=== PATIENT | female | born 2000 | race Caucasian/White ===

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

== ENCOUNTER 2021-06-18 15:38 | Observation (INO) ==
[2021-06-18] MEDS ORDERED: NS 1,000 ML IV 1,000 ML IV ONE (15:40)
[2021-06-18] MEDS ORDERED: ZOFRAN INJ 4 MG VIAL IVP PRN (15:41)
[2021-06-18 17:55] VITALS: BMI 21.7
[2021-06-18] MEDS: CIPRO IV 400 MG PREMIX* 400 MG/200 ML IV.SOLN. IV SCH (21:00)
[2021-06-18] MEDS: TYLENOL 325 MG TAB PO PRN (21:00)
[2021-06-18] MEDS ORDERED: KLOR-CON PO PRN (22:02)
[2021-06-18] MEDS ORDERED: POTASSIUM CHL 60 MEQ/NS 0.45% 500 ML IV PRN (22:02)
[2021-06-18] MEDS ORDERED: POTASSIUM CHLORIDE LIQ 20 MEQ UDC PO PRN (22:02)
[2021-06-18] MEDS ORDERED: POTASSIUM CHL 40 MEQ/NS 0.45% 500 ML IV PRN (22:02)
[2021-06-18] MEDS ORDERED: MICRO K EXTEN CAP 10 MEQ PO PRN (22:02)
[2021-06-18] MEDS ORDERED: K-RIDER 10 MEQ/NS 100 ML 10 MEQ/100 ML BAG IV PRN (22:02)
[2021-06-19] MEDS: NS 1,000 ML IV 1,000 ML IV SCH ×4 (04:50→23:06)
[2021-06-19 05:54] LABS: BASOPHILS % (AUTO) 0.4 % (0.2-1.0); EOSINOPHILS # (AUTO) 0.1 x10^3/uL (0.0-0.2); EOSINOPHILS % (AUTO) 1.5 % (0.9-2.9); HEMATOCRIT 33.9 % (36.0-47.0); HEMOGLOBIN 11.6 g/dL (12.0-16.0); LYMPHOCYTES # (AUTO) 1.8 X10^3/uL (1.3-2.9); LYMPHOCYTES % (AUTO) 22.7 % (21.0-51.0); MEAN CORPUSCULAR HEMOGLOBIN 28.4 pg (27.0-34.0); MEAN CORPUSCULAR HGB CONC 34.2 g/dL (33.0-35.0); MEAN CORPUSCULAR VOLUME 83.1 fL (80.0-100.0); MEAN PLATELET VOLUME 7.9 fL (7.4-11.0); MONOCYTES % (AUTO) 13.4 % (0.0-13.0); NEUTROPHILS # (AUTO) 4.8 x10^3/uL (2.2-4.8); RED BLOOD COUNT 4.07 X10^6/uL (3.5-5.4); WHITE BLOOD COUNT 7.7 X10^3/uL (3.6-10.0)
[2021-06-19 06:08] LABS: ALANINE AMINOTRANSFERASE 9 Units/L (12-78); ALBUMIN 2.3 g/dL (3.4-5.0); ALKALINE PHOSPHATASE 109 Units/L (46-116); ASPARTATE AMINO TRANSFERASE 10 Units/L (15-37); BLOOD UREA NITROGEN 3 mg/dL (7-18); CALCIUM 8.1 mg/dL (8.5-10.1); CHLORIDE 106 mmol/L (98-107); COR CA(FOR HYPOALB) 9.5 mg/dL (8.5-10.1); COR NA(FOR HYPERGLY) 142 mmol/L (136-145); CREATININE 0.76 mg/dL (0.55-1.02); MAGNESIUM 1.8 mg/dL (1.7-2.9); SODIUM 139 mmol/L (136-145); TOTAL PROTEIN 6.2 g/dL (6.4-8.2); eGFR NON BLACK RACES > 60 (>60)
[2021-06-19 07:46] LABS: BILIRUBIN,URINE NEGATIVE (NEGATIVE); BLOOD/HEMOGLOBIN,URINE 1+ (NEGATIVE); GLUCOSE, URINE 3+ (NEGATIVE); KETONES,URINE NEGATIVE (NEGATIVE); LEUKOCYTE ESTERASE ,URINE 2+ (NEGATIVE); NITRITES,URINE NEGATIVE (NEGATIVE); PROTEIN,URINE NEGATIVE (NEGATIVE); UROBILINOGEN,URINE NORMAL (NORMAL)
[2021-06-19 07:51] LABS: APPEARANCE,URINE CLEAR (CLEAR); COLOR,URINE YELLOW (YELLOW)
[2021-06-19 07:54] LABS: BACTERIA,URINE TRACE /HPF (NEGATIVE); RBC,URINE 0-2 /HPF (0-3); SQUAMOUS EPITHELIAL CELL,UR RARE /HPF (NEGATIVE)
[2021-06-19] MEDS: CIPRO IV 400 MG PREMIX* 400 MG/200 ML IV.SOLN. IV SCH ×2 (08:33→20:47)
[2021-06-19] MEDS: K-DUR TAB 20 MEQ PO PRN (12:05)
[2021-06-19] MEDS ORDERED: MAG-OX TAB PO ONE (12:10)
[2021-06-19] MEDS ORDERED: MAG-OX TAB ONE (12:13)
--- NOTE | 2021-06-19 14:36 | DR.H&P ---
H&P History & Physical for Day of: H&P Date: 06/19/21 Allergies Allergies Allergy/AdvReac Type Severity Reaction Status Date / Time No Known Drug Allergies Allergy Verified 10/26/20 11:42 History of Present Illness History of Present Illness: Pt is a 21 year old female past medical history Type 1 DM, presenting with fever, chills, dysuria, and left lower back pain for the past 3 days. Patient reports temperature up to 102 F at home. The symptoms have been associated with chills, fatigue, headache, nausea, and sweating. The low back pain is described as a mild to moderate dull aching that has been gradually worsening. Labs/imaging: Wbc 13.9, Hgb 12.6, Plt 242, Na 133, K 3.4, Creatinine 1.07, Glucose 342, Lipase 29, acetone negative, UA c/w infection, Urine/Blood culture pending. Pt was given IVF NS bolus and started on IVF NS@125ml/h, antibiotics: IV ciprofloxacin 400mg BID, SSI. CTAP ordered due to concern and to rule out pyelonephritis. Will continue to closely monitor and follow up labs/imaging. Past Medical History Past Medical History: Diabetes and Hypertension Past Surgical History Surgical History: and Cholecystectomy Family History Family Medical History: Diabetes Mellitus, Coronary Artery Disease and Hypertension Social History Does patient currently use any type of tobacco product: No Have you used tobacco products in the last 12 months: No Type of Tobacco Use: None Does any household member use tobacco: No Alcohol Use: None Medications Home Medications: No Known Drug Allergies Allergy (Verified 10/26/20 11:42) CONTINUE taking the following medications insulin lispro [Humalog U-100 Insulin] See Rx Instructions .ROUTE .COMPLEX 06/19/21 [History] Labs Result Diagrams: 06/19/21 05:15 06/19/21 05:15 Labs: 06/18/21 17:11 Blood Blood Culture - Preliminary Laboratory WBC 7.7 X10^3/uL (3.6-10.0) 06/19/21 05:15 RBC 4.07 X10^6/uL (3.5-5.4) 06/19/21 05:15 Hgb 11.6 g/dL (12.0-16.0) L 06/19/21 05:15 Hct 33.9 % (36.0-47.0) L 06/19/21 05:15 MCV 83.1 fL (80.0-100.0) 06/19/21 05:15 MCH 28.4 pg (27.0-34.0) 06/19/21 05:15 MCHC 34.2 g/dL (33.0-35.0) 06/19/21 05:15 RDW 12.0 % (11.6-16.5) 06/19/21 05:15 Plt Count 243 X10^3/uL (150.0-450.0) 06/19/21 05:15 MPV 7.9 fL (7.4-11.0) 06/19/21 05:15 Neut % (Auto) 62.0 % (42.0-75.0) 06/19/21 05:15 Lymph % (Auto) 22.7 % (21.0-51.0) 06/19/21 05:15 [place] % (Auto) 13.4 % (0.0-13.0) H 06/19/21 05:15 Eos % (Auto) 1.5 % (0.9-2.9) 06/19/21 05:15 Baso % (Auto) 0.4 % (0.2-1.0) 06/19/21 05:15 Neut # (Auto) 4.8 x10^3/uL (2.2-4.8) 06/19/21 05:15 Lymph # (Auto) 1.8 X10^3/uL (1.3-2.9) 06/19/21 05:15 [place] # (Auto) 1.0 x10^3/uL (0.3-0.8) H 06/19/21 05:15 Eos # (Auto) 0.1 x10^3/uL (0.0-0.2) 06/19/21 05:15 Baso # (Auto) 0.0 X10^3/uL (0.0-0.1) 06/19/21 05:15 Absolute Nucleated RBC 0.0 /100WBC 06/19/21 05:15 Sodium 139 mmol/L (136-145) 06/19/21 05:15 Corrected Sodium 142 mmol/L (136-145) 06/19/21 05:15 Potassium 3.4 mmol/L (3.5-5.1) L 06/19/21 05:15 Chloride 106 mmol/L (98-107) 06/19/21 05:15 Carbon Dioxide 25.0 mmol/L (21-32) 06/19/21 05:15 BUN 3 mg/dL (7-18) L 06/19/21 05:15 Creatinine 0.76 mg/dL (0.55-1.02) 06/19/21 05:15 Est GFR (MDRD) Af Amer > 60 (>60) 06/19/21 05:15 Est GFR (MDRD) Non-Af > 60 (>60) 06/19/21 05:15 Glucose 236 mg/dL (65-99) H 06/19/21 05:15 Calcium 8.1 mg/dL (8.5-10.1) L 06/19/21 05:15 Corrected Calcium 9.5 mg/dL (8.5-10.1) 06/19/21 05:15 Magnesium 1.8 mg/dL (1.7-2.9) 06/19/21 05:15 Total Bilirubin 0.30 mg/dL (0.2-1.0) 06/19/21 05:15 AST 10 Units/L (15-37) L 06/19/21 05:15 ALT 9 Units/L (12-78) L 06/19/21 05:15 Alkaline Phosphatase 109 Units/L (46-116) 06/19/21 05:15 Total Protein 6.2 g/dL (6.4-8.2) L 06/19/21 05:15 Albumin 2.3 g/dL (3.4-5.0) L 06/19/21 05:15 Globulin 3.9 g/dL (2.5-4.5) 06/19/21 05:15 Albumin/Globulin Ratio 0.6 Ratio (1.1-2.1) L 06/19/21 05:15 Specimen Type Clean catch urine 06/19/21 07:30 Urine Color Yellow (YELLOW) 06/19/21 07:30 Urine Appearance Clear (CLEAR) 06/19/21 07:30 Urine pH 6.0 (5.0 - 8.0) 06/19/21 07:30 Ur Specific [place] 1.010 (1.000-1.030) 06/19/21 07:30 Urine Protein Negative (NEGATIVE) 06/19/21 07:30 Urine Glucose (UA) 3+ (NEGATIVE) 06/19/21 07:30 Urine Ketones Negative (NEGATIVE) 06/19/21 07:30 Urine Blood 1+ (NEGATIVE) 06/19/21 07:30 Urine Nitrite Negative (NEGATIVE) 06/19/21 07:30 Urine Bilirubin Negative (NEGATIVE) 06/19/21 07:30 Urine Urobilinogen Normal (NORMAL) 06/19/21 07:30 Ur Leukocyte Esterase 2+ (NEGATIVE) 06/19/21 07:30 Urine RBC 0-2 /HPF (0-3) 06/19/21 07:30 Urine WBC 10-20 /HPF (0-5) A 06/19/21 07:30 Ur Squamous Epith Cells Rare /HPF (NEGATIVE) 06/19/21 07:30 Urine Bacteria Trace /HPF (NEGATIVE) 06/19/21 07:30 Ur Culture Indicated? No/not indicated 06/19/21 07:30 Review of Systems Constitutional: Fever, Chills and Weakness Eyes: No Symptoms Reported ENT: No Symptoms Reported Respiratory: No Symptoms Reported Cardiovascular: No Symptoms Reported Gastrointestinal: Nausea Genitourinary: Dysuria Musculoskeletal: Back Pain (Left lower back) Skin: No Symptoms Reported Neurological: No Symptoms Reported Physical Exam Vital Signs: Temperature 98.0 F Pulse Rate [Right Brachial] 77 Pulse Rate [Left Radial] 84 Respiratory Rate 18 Blood Pressure [Right Arm] 128/81 O2 Sat by Pulse Oximetry 98 Oriented: Normal Eyes: Normal Ear: Normal Nose: Normal Throat: Normal Respiratory: Clear Throughout Cardiovascular: Normal : Normal Auscultation: Bowel Sounds: Normal Palpation: Normal Tenderness: Suprapubic and Mild Skin: Normal Musculoskeletal: Back:Lumbar (left CVA tenderness) Psychiatric: Normal Mood Description: Calm and Appropriate Affect: Normal Speech Pattern: Clear and Appropriate Assessment/Plan (1) Acute cystitis: Status: Acute Plan: IV abx Blood/urine culture pending Review H&P Reviewed: Yes Patient was examined?: Yes
--- NOTE | 2021-06-19 15:14 | CT ---
CT abdomen and pelvis with contrastIndication: Left flank painTECHNIQUEHelical images through the abdomen and pelvis after IV and oral contrast per protocol. Coronal and sagittal reformats provided.COMPARISONMay 2019 hepatobiliary study. No recent prior cross-sectional imaging the abdomen currently availableFINDINGSLimited images through the lower chest demonstrate acute. Review of bone windows demonstrate no destructive osseous lesionAbdomen: The gallbladder is absent. The liver, spleen, pancreas, adrenal glands, stomach and small bowel demonstrate no acute abnormality. There is somewhat patchy appearance to the enhancement pattern of the kidneys of hypodensity approaching the cortex on coronal image 32 of the right kidney and on coronal image 26. Similar findings is seen in left kidney on coronal image 32 and coronal image 25. Pyelonephritis is considered possible. Mild ureteral prominence noted with bladder wall thickening also suggesting significant urinary tract infection. Vasculature is normal.The appendix is normal. Oral contrast enters the colon without obstruction.Pelvis: Urinary bladder wall is thickened. Colon and rectum are normal. The cervix appears somewhat heterogeneous with fluid seen in the cul de sac and bilateral ovarian cysts.IMPRESSION:1. Patchy enhancement the kidneys bilaterally, most compatible with pyelonephritis. Correlate clinically and follow-up to resolution.2. Ureters are prominent and the bladder is thick-walled, suggesting significant urinary tract infection.3. Free fluid in the pelvis and slight heterogeneity to the cervix. Correlate clinically for any evidence of pelvic inflammatory disease with pelvic examination findings.Electronically signed by: AIDEE DUDLEY (June 19, 2021 15:14:09)
[2021-06-19] MEDS: ZOVIRAX TOP SCH (16:20)
[2021-06-19] MEDS: TYLENOL 325 MG TAB PO PRN (20:47)
[2021-06-20] MEDS: ZOVIRAX TOP SCH ×3 (00:05→17:29)
[2021-06-20] MEDS: NS 1,000 ML IV 1,000 ML IV SCH ×5 (01:30→22:15)
[2021-06-20 04:58] LABS: BASOPHILS % (AUTO) 0.7 % (0.2-1.0); EOSINOPHILS # (AUTO) 0.3 x10^3/uL (0.0-0.2); EOSINOPHILS % (AUTO) 4.1 % (0.9-2.9); HEMATOCRIT 36.1 % (36.0-47.0); HEMOGLOBIN 12.3 g/dL (12.0-16.0); LYMPHOCYTES # (AUTO) 2.2 X10^3/uL (1.3-2.9); LYMPHOCYTES % (AUTO) 32.9 % (21.0-51.0); MEAN CORPUSCULAR HEMOGLOBIN 28.5 pg (27.0-34.0); MEAN CORPUSCULAR HGB CONC 34.1 g/dL (33.0-35.0); MEAN CORPUSCULAR VOLUME 83.5 fL (80.0-100.0); MEAN PLATELET VOLUME 7.7 fL (7.4-11.0); MONOCYTES # (AUTO) 0.6 x10^3/uL (0.3-0.8); NEUTROPHILS # (AUTO) 3.6 x10^3/uL (2.2-4.8); NEUTROPHILS % (AUTO) 53.3 % (42.0-75.0); RED BLOOD COUNT 4.33 X10^6/uL (3.5-5.4); RED CELL DISTRIBUTION WIDTH 11.9 % (11.6-16.5); WHITE BLOOD COUNT 6.7 X10^3/uL (3.6-10.0)
[2021-06-20 05:07] LABS: ALANINE AMINOTRANSFERASE 8 Units/L (12-78); ALBUMIN 2.5 g/dL (3.4-5.0); ALKALINE PHOSPHATASE 110 Units/L (46-116); ASPARTATE AMINO TRANSFERASE 15 Units/L (15-37); BLOOD UREA NITROGEN 3 mg/dL (7-18); CALCIUM 8.6 mg/dL (8.5-10.1); CARBON DIOXIDE 25.5 mmol/L (21-32); CHLORIDE 103 mmol/L (98-107); COR CA(FOR HYPOALB) 9.8 mg/dL (8.5-10.1); COR NA(FOR HYPERGLY) 141 mmol/L (136-145); CREATININE 0.85 mg/dL (0.55-1.02); MAGNESIUM 1.9 mg/dL (1.7-2.9); SODIUM 136 mmol/L (136-145); TOTAL PROTEIN 6.7 g/dL (6.4-8.2); eGFR NON BLACK RACES > 60 (>60)
[2021-06-20] MEDS: CIPRO IV 400 MG PREMIX* 400 MG/200 ML IV.SOLN. IV SCH ×2 (09:05→20:15)
[2021-06-20] MEDS: K-DUR TAB 20 MEQ PO PRN (09:06)
--- NOTE | 2021-06-20 13:10 | PCM.PROG ---
Progress Note Progress Note for Day of Date of Exam: 06/20/21 Subjective Subjective: Pt is a 21 year old female past medical history Type 1 DM, admitted for acute cystitis and now bilateral pyelonephritis. This morning she reports feeling better than she did at time of admission. No acute events overnight. Labs/imaging: Wbc 6.7, Hgb 12.3, Plt 280, Na 136, K 3.7, Creatinine 0.85, Glucose 314, Urine culture: prelim gram negative rods, Blood culture 1/2 positive, suspect contamination however will await prelim results. CTAP was obtained that revealed: Patchy enhancement the kidneys bilaterally, most compatible with pyelonephritis. Correlate clinically and follow-up to res olution. 2. Ureters are prominent and the bladder is thick-walled, suggesting significant urinary tract infection. Leukocytosis has significantly improved and resolved. Will continue IVF NS@125ml/h, antibiotics: IV ciprofloxacin 400mg BID, SSI. Continue to closely monitor and follow up labs/imaging. Past Medical Family Social History Past Med/Fam/Surg Hx: No changes since H&P Allergies: Allergies No Known Drug Allergies Allergy (Verified 10/26/20 11:42) Review of Systems ROS: No change since H&P Vital Signs and I&O's Vital Signs: Temperature 98.1 F Pulse Rate [Right Brachial] 70 Pulse Rate [Left Radial] 84 Respiratory Rate 18 Blood Pressure [Right Arm] 125/75 O2 Sat by Pulse Oximetry 99 Intake and Output: Intake & Output 06/17/21 06/18/21 06/19/21 06/20/21 23:59 23:59 23:59 23:59 Intake Total 1936 2932 / 2932 1138 / 1138 Balance 1936 2932 / 2932 1138 / 1138 Physical Exam Oriented: Normal Eyes: Normal Ear: Normal Nose: Normal Throat: Normal Respiratory: Normal Cardiovascular: Normal : Normal Auscultation: Bowel Sounds: Normal Tenderness: Suprapubic and Mild Skin: Normal Musculoskeletal: Back:Lumbar (left CVA tenderness) Psychiatric: Normal Mood Description: Calm and Appropriate Affect: Normal Speech Pattern: Clear and Appropriate Laboratory and Diagnostics Result Diagrams: 06/20/21 04:34 06/20/21 04:34 Labs: 06/18/21 17:29 Blood Blood Culture - Preliminary 06/18/21 17:11 Blood Blood Culture - Preliminary Laboratory WBC 6.7 X10^3/uL (3.6-10.0) 06/20/21 04:34 RBC 4.33 X10^6/uL (3.5-5.4) 06/20/21 04:34 Hgb 12.3 g/dL (12.0-16.0) 06/20/21 04:34 Hct 36.1 % (36.0-47.0) 06/20/21 04:34 MCV 83.5 fL (80.0-100.0) 06/20/21 04:34 MCH 28.5 pg (27.0-34.0) 06/20/21 04:34 MCHC 34.1 g/dL (33.0-35.0) 06/20/21 04:34 RDW 11.9 % (11.6-16.5) 06/20/21 04:34 Plt Count 280 X10^3/uL (150.0-450.0) 06/20/21 04:34 MPV 7.7 fL (7.4-11.0) 06/20/21 04:34 Neut % (Auto) 53.3 % (42.0-75.0) 06/20/21 04:34 Lymph % (Auto) 32.9 % (21.0-51.0) 06/20/21 04:34 [place] % (Auto) 9.0 % (0.0-13.0) 06/20/21 04:34 Eos % (Auto) 4.1 % (0.9-2.9) H 06/20/21 04:34 Baso % (Auto) 0.7 % (0.2-1.0) 06/20/21 04:34 Neut # (Auto) 3.6 x10^3/uL (2.2-4.8) 06/20/21 04:34 Lymph # (Auto) 2.2 X10^3/uL (1.3-2.9) 06/20/21 04:34 [place] # (Auto) 0.6 x10^3/uL (0.3-0.8) 06/20/21 04:34 Eos # (Auto) 0.3 x10^3/uL (0.0-0.2) H 06/20/21 04:34 Baso # (Auto) 0.0 X10^3/uL (0.0-0.1) 06/20/21 04:34 Absolute Nucleated RBC 0.0 /100WBC 06/20/21 04:34 Sodium 136 mmol/L (136-145) 06/20/21 04:34 Corrected Sodium 141 mmol/L (136-145) 06/20/21 04:34 Potassium 3.7 mmol/L (3.5-5.1) 06/20/21 04:34 Chloride 103 mmol/L (98-107) 06/20/21 04:34 Carbon Dioxide 25.5 mmol/L (21-32) 06/20/21 04:34 BUN 3 mg/dL (7-18) L 06/20/21 04:34 Creatinine 0.85 mg/dL (0.55-1.02) 06/20/21 04:34 Est GFR (MDRD) Af Amer > 60 (>60) 06/20/21 04:34 Est GFR (MDRD) Non-Af > 60 (>60) 06/20/21 04:34 Glucose 314 mg/dL (65-99) H 06/20/21 04:34 Calcium 8.6 mg/dL (8.5-10.1) 06/20/21 04:34 Corrected Calcium 9.8 mg/dL (8.5-10.1) 06/20/21 04:34 Magnesium 1.9 mg/dL (1.7-2.9) 06/20/21 04:34 Total Bilirubin 0.20 mg/dL (0.2-1.0) 06/20/21 04:34 AST 15 Units/L (15-37) 06/20/21 04:34 ALT 8 Units/L (12-78) L 06/20/21 04:34 Alkaline Phosphatase 110 Units/L (46-116) 06/20/21 04:34 Total Protein 6.7 g/dL (6.4-8.2) 06/20/21 04:34 Albumin 2.5 g/dL (3.4-5.0) L 06/20/21 04:34 Globulin 4.2 g/dL (2.5-4.5) 06/20/21 04:34 Albumin/Globulin Ratio 0.6 Ratio (1.1-2.1) L 06/20/21 04:34 Specimen Type Clean catch urine 06/19/21 07:30 Urine Color Yellow (YELLOW) 06/19/21 07:30 Urine Appearance Clear (CLEAR) 06/19/21 07:30 Urine pH 6.0 (5.0 - 8.0) 06/19/21 07:30 Ur Specific [place] 1.010 (1.000-1.030) 06/19/21 07:30 Urine Protein Negative (NEGATIVE) 06/19/21 07:30 Urine Glucose (UA) 3+ (NEGATIVE) 06/19/21 07:30 Urine Ketones Negative (NEGATIVE) 06/19/21 07:30 Urine Blood 1+ (NEGATIVE) 06/19/21 07:30 Urine Nitrite Negative (NEGATIVE) 06/19/21 07:30 Urine Bilirubin Negative (NEGATIVE) 06/19/21 07:30 Urine Urobilinogen Normal (NORMAL) 06/19/21 07:30 Ur Leukocyte Esterase 2+ (NEGATIVE) 06/19/21 07:30 Urine RBC 0-2 /HPF (0-3) 06/19/21 07:30 Urine WBC 10-20 /HPF (0-5) A 06/19/21 07:30 Ur Squamous Epith Cells Rare /HPF (NEGATIVE) 06/19/21 07:30 Urine Bacteria Trace /HPF (NEGATIVE) 06/19/21 07:30 Ur Culture Indicated? No/not indicated 06/19/21 07:30 Plan (1) Pyelonephritis: Status: Acute Plan: IV ciprofloxacin (2) Acute cystitis: Status: Acute Plan: IV abx Urine culture prelim gram negative rods
[2021-06-20] MEDS: NovoLIN R (or HumuLIN R) SC PRN (23:44)
[2021-06-21] MEDS: ZOVIRAX TOP SCH ×2 (01:06→08:40)
[2021-06-21] MEDS: NS 1,000 ML IV 1,000 ML IV SCH ×2 (04:56→06:04)
[2021-06-21 06:08] LABS: BASOPHILS # (AUTO) 0.1 X10^3/uL (0.0-0.1); BASOPHILS % (AUTO) 0.8 % (0.2-1.0); EOSINOPHILS # (AUTO) 0.3 x10^3/uL (0.0-0.2); EOSINOPHILS % (AUTO) 3.7 % (0.9-2.9); HEMATOCRIT 36.3 % (36.0-47.0); HEMOGLOBIN 12.5 g/dL (12.0-16.0); LYMPHOCYTES # (AUTO) 2.3 X10^3/uL (1.3-2.9); LYMPHOCYTES % (AUTO) 29.7 % (21.0-51.0); MEAN CORPUSCULAR HEMOGLOBIN 28.5 pg (27.0-34.0); MEAN CORPUSCULAR HGB CONC 34.4 g/dL (33.0-35.0); MEAN CORPUSCULAR VOLUME 82.9 fL (80.0-100.0); MEAN PLATELET VOLUME 7.6 fL (7.4-11.0); MONOCYTES # (AUTO) 0.5 x10^3/uL (0.3-0.8); MONOCYTES % (AUTO) 6.3 % (0.0-13.0); NEUTROPHILS # (AUTO) 4.6 x10^3/uL (2.2-4.8); NEUTROPHILS % (AUTO) 59.5 % (42.0-75.0); RED BLOOD COUNT 4.38 X10^6/uL (3.5-5.4); RED CELL DISTRIBUTION WIDTH 11.9 % (11.6-16.5); WHITE BLOOD COUNT 7.7 X10^3/uL (3.6-10.0)
[2021-06-21] MEDS: NovoLIN R (or HumuLIN R) SC PRN ×2 (06:12→12:06)
[2021-06-21 06:35] LABS: ALANINE AMINOTRANSFERASE < 6 Units/L (12-78); ALBUMIN 2.6 g/dL (3.4-5.0); ALKALINE PHOSPHATASE 112 Units/L (46-116); ASPARTATE AMINO TRANSFERASE 10 Units/L (15-37); BLOOD UREA NITROGEN 4 mg/dL (7-18); CALCIUM 8.7 mg/dL (8.5-10.1); CARBON DIOXIDE 25.1 mmol/L (21-32); CHLORIDE 102 mmol/L (98-107); COR CA(FOR HYPOALB) 9.8 mg/dL (8.5-10.1); COR NA(FOR HYPERGLY) 141 mmol/L (136-145); CREATININE 0.76 mg/dL (0.55-1.02); SODIUM 136 mmol/L (136-145); TOTAL PROTEIN 6.8 g/dL (6.4-8.2); eGFR NON BLACK RACES > 60 (>60)
[2021-06-21] MEDS: CIPRO IV 400 MG PREMIX* 400 MG/200 ML IV.SOLN. IV SCH (08:40)
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
[2021-06-21 12:35] VITALS: BP 135/75
== END 2021-06-21 13:40 | disposition home or self-care (01) ==
LOC: MED/SURG
PROVIDERS: ADMIT Family Medicine; ATTEND Family Medicine

== ENCOUNTER 2024-09-03 07:32 | Observation (INO) ==
[2024-09-03] MEDS: VALIUM INJ IVP ONE (07:39)
--- NOTE | 2024-09-03 08:01 | DR.SEIZA ---
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 She was rushed to the ER and given 5 mg of Valium as she was entering a postictal state. Reports from her coworkers witnessed the seizure state that it lasted between 1 and 4 minutes but history of this is questionable. 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 Fluids and 8 units of insulin were administered. Complaints Chief Complaint:: Pt arrived to ED via stretcher from [employer] dining room by coworkers. According to coworker approximately 5-10 minutes prior to arrival pt had seizure that lasted approximately 1 minute. Source History Provided: Bystander Mode of Arrival Mode of Arrival: Stretcher Timing Onset of Chief Complaint: 09/03/24 PMH <Vincent Ford - Last Filed: 09/03/24 08:14> PMH Past Medical History: Yes Past Medical History: Diabetes, GERD, Hypertension and Seizures Past Surgical History: Yes Surgical History: Cholecystectomy Family History History of Family Medical Conditions: Yes Family Medical History: Diabetes Mellitus and Coronary Artery Disease Social History Does patient currently use any type of tobacco product: No Have you used tobacco products in the last 12 months: No Type of Tobacco Use: Vape Does any household member use tobacco: No Alcohol Use: Occasionally Do you use any recreational Drugs:: Yes (marijuana) Lives With: Family Lives Where: Home Travel Risk Coronavirus risk:travel/contact w/high risk person: No Has patient experienced Coronavirus symptoms: No Infectious screening In the last 2 months have you had wt loss of >10#?: NO Have you had fever, night sweats or hemotysis?: No Have you traveled outside the country in the last 6 months?: No Isolation: Standard ROS <Vincent Ford - Last Filed: 09/03/24 08:14> Review of Systems Unable to Obtain Due To: Altered mental status (Seizing and then postictal state) <Shant Berg - Last Filed: 09/03/24 10:12> Review of Systems Constitutional: Other (This patient reported to work at the local [employer] and had a seizure there.) Eyes: No Symptoms Reported ENTM: No Symptoms Reported Respiratoy: No Symptoms Reported Cardiovascular: No Symptoms Reported Gastrointestinal/Abdominal: No Symptoms Reported Genitourinary: No Symptoms Reported Neurological: Seizure Musculoskeletal: No Symptoms Reported Integumentary: No Symptoms Reported Hematologic/Lymphatic: No Symptoms Reported Endocrine: No Symptoms Reported Psychiatric: No Symptoms Reported All Other Systems: Reviewed and Negative PE <Vincent Ford - Last Filed: 09/03/24 08:14> Vital Signs Vitals: Vital Signs Temperature 97.7 F Pulse Rate 83 Pulse Rate 87 Pulse Rate 86 Pulse Rate 88 Pulse Rate 91 Pulse Rate 86 Pulse Rate 87 Pulse Rate 88 Pulse Rate 90 Pulse Rate 92 Pulse Rate 94 Pulse Rate 105 Respiratory Rate 13 Respiratory Rate 15 Respiratory Rate 14 Respiratory Rate 15 Respiratory Rate 16 Respiratory Rate 17 Respiratory Rate 17 Respiratory Rate 16 Respiratory Rate 17 Respiratory Rate 18 Respiratory Rate 20 Blood Pressure 110/64 Blood Pressure 110/72 Blood Pressure 121/81 Blood Pressure 126/80 Blood Pressure 127/81 O2 Sat by Pulse Oximetry 99 O2 Sat by Pulse Oximetry 99 O2 Sat by Pulse Oximetry 99 O2 Sat by Pulse Oximetry 98 O2 Sat by Pulse Oximetry 99 O2 Sat by Pulse Oximetry 98 O2 Sat by Pulse Oximetry 98 O2 Sat by Pulse Oximetry 99 O2 Sat by Pulse Oximetry 95 O2 Sat by Pulse Oximetry 96 O2 Sat by Pulse Oximetry 97 O2 Sat by Pulse Oximetry 99 General Limitations: Altered Mental Status General Appearance: In Distress (Seizing on arrival and then in postictal state) Head Head Exam: Normal Inspection, Atraumatic and Normocephalic Eyes Eye exam: Normal Appearance and PERRL Sclera/Conjunctival: Normal Inspection: Bilateral ENT Mouth Exam: Other (Unable to perform due to patient clenching. No visible blood.) Neck Neck Exam: Normal Inspection Chest Chest Inspection: Normal Inspection and Symmetric Chest Wall Rise Respiratory Respiratory Exam: Normal Lung Sounds Bilat Cardiovascular Cardiovascular Exam: Regular Rate and Normal Rhythm Abdominal Exam Abdominal Exam: Normal Inspection, Normal Bowel Sounds and Soft; negative Distention, Tenderness, Guarding, Rebound or Rigidity Extremities Extremities Exam: Normal Inspection and Normal Capillary Refill; negative Edema Neurologic Neurological Exam: Other (Post ictal state) Skin Skin Exam: Warm, Dry, Intact and Normal Color <Shant [place] - Last Filed: 09/03/24 10:12> Vital Signs Vitals: Vital Signs Temperature 97.7 F Pulse Rate 83 Pulse Rate 87 Pulse Rate 86 Pulse Rate 88 Pulse Rate 91 Pulse Rate 86 Pulse Rate 87 Pulse Rate 88 Pulse Rate 90 Pulse Rate 92 Pulse Rate 94 Pulse Rate 105 Respiratory Rate 13 Respiratory Rate 15 Respiratory Rate 14 Respiratory Rate 15 Respiratory Rate 16 Respiratory Rate 17 Respiratory Rate 17 Respiratory Rate 16 Respiratory Rate 17 Respiratory Rate 18 Respiratory Rate 20 Blood Pressure 110/64 Blood Pressure 110/72 Blood Pressure 121/81 Blood Pressure 126/80 Blood Pressure 127/81 O2 Sat by Pulse Oximetry 99 O2 Sat by Pulse Oximetry 99 O2 Sat by Pulse Oximetry 99 O2 Sat by Pulse Oximetry 98 O2 Sat by Pulse Oximetry 99 O2 Sat by Pulse Oximetry 98 O2 Sat by Pulse Oximetry 98 O2 Sat by Pulse Oximetry 99 O2 Sat by Pulse Oximetry 95 O2 Sat by Pulse Oximetry 96 O2 Sat by Pulse Oximetry 97 O2 Sat by Pulse Oximetry 99 MDM <Shant Berg - Last Filed: 09/03/24 10:12> Differential Diagnosis Seizure due to:: Idiopathic Differential Diagnosis Comment: iddm,hyperglycemia COURSE <Vincent Ford - Last Filed: 09/03/24 08:14> Treatment Treatment: 8 AM -patient presented to Dr. Berg as he is taken over care due to shift change <Shant Berg - Last Filed: 09/03/24 10:12> Treatment Treatment: 8 AM -patient presented to Dr. Berg as he is taken over care due to shift change. This patient was signed out to me by Dr. Pleitez and he had already given the patient 5 mg of Valium since she did have a seizure IV and he also given 8 units of blood in our IV for blood sugar of 767. I saw the patient she was alert x 3 she did not appear postictal. I did review his H&P when he did the evaluation and the changing metastatic was up when I saw her she was completely alert and oriented x 3. After I evaluated patient I did give her 1 g of Keppra IV and she tells me she normally takes Keppra 500 mg twice a day she missed the morning Keppra. After patient was given the 1 L bolus of normal saline and a urine received regular insulin her blood sugar came down to 576 she was given an additional bolus of normal saline and 8 units of Novolin R IV. This patient was serum acetone negative we did do a CBC that was normal metabolic panel is again show blood sugar was 765. Did call Dr. James singh and discussed with patient at [phone] with him he said admit the patient and put her on the DKA protocol. We also are going to continue Keppra 500 mg twice a day. The patient was told of the plan to admit her to the hospital and she was agreeable to the admission. ROR <Vincent Ford - Last Filed: 09/03/24 08:14> Labs Reviewed 09/03/24 07:41 09/03/24 09:14 Laboratory: WBC 10.9 X10^3/uL (3.6-10.0) H 09/03/24 07:41 RBC 4.70 X10^6/uL (3.5-5.4) 09/03/24 07:41 Hgb 14.3 g/dL (12.0-16.0) 09/03/24 07:41 Hct 43.5 % (36.0-47.0) 09/03/24 07:41 MCV 92.4 fL (80.0-100.0) 09/03/24 07:41 MCH 30.3 pg (27.0-34.0) 09/03/24 07:41 MCHC 32.8 g/dL (33.0-35.0) L 09/03/24 07:41 RDW 13.3 % (11.6-16.5) 09/03/24 07:41 Plt Count 308 X10^3/uL (150.0-450.0) 09/03/24 07:41 MPV 8.5 fL (7.4-11.0) 09/03/24 07:41 Neut % (Auto) 59.6 % (42.0-75.0) 09/03/24 07:41 Lymph % (Auto) 30.7 % (21.0-51.0) 09/03/24 07:41 [place] % (Auto) 6.2 % (0.0-13.0) 09/03/24 07:41 Eos % (Auto) 2.9 % (0.9-2.9) 09/03/24 07:41 Baso % (Auto) 0.6 % (0.2-1.0) 09/03/24 07:41 Neut # (Auto) 6.5 x10^3/uL (2.2-4.8) H 09/03/24 07:41 Lymph # (Auto) 3.3 X10^3/uL (1.3-2.9) H 09/03/24 07:41 [place] # (Auto) 0.7 x10^3/uL (0.3-0.8) 09/03/24 07:41 Eos # (Auto) 0.3 x10^3/uL (0.0-0.2) H 09/03/24 07:41 Baso # (Auto) 0.1 X10^3/uL (0.0-0.1) 09/03/24 07:41 Absolute Nucleated RBC 0.1 /100WBC 09/03/24 07:41 Sodium 127 mmol/L (136-145) L 09/03/24 07:41 Corrected Sodium 143 mmol/L (136-145) 09/03/24 07:41 Potassium 3.8 mmol/L (3.5-5.1) 09/03/24 07:41 Chloride 87 mmol/L (98-107) L 09/03/24 07:41 Carbon Dioxide 20.3 mmol/L (21-32) L 09/03/24 07:41 BUN 16 mg/dL (7-18) 09/03/24 07:41 Creatinine 1.53 mg/dL (0.55-1.02) H 09/03/24 07:41 Est GFR (MDRD) Af Amer 54 (>60) L 09/03/24 07:41 Est GFR (MDRD) Non-Af 45 (>60) L 09/03/24 07:41 Glucose 576 mg/dL (65-99) H* 09/03/24 09:14 POC Glucose (mg/dL) > 600 mg/dL (65-99) 09/03/24 09:07 Calcium 9.0 mg/dL (8.5-10.1) 09/03/24 07:41 Corrected Calcium TNP 09/03/24 07:41 Total Bilirubin 0.40 mg/dL (0.2-1.0) 09/03/24 07:41 AST 19 Units/L (15-37) 09/03/24 07:41 ALT 31 Units/L (12-78) 09/03/24 07:41 Alkaline Phosphatase 153 Units/L (46-116) H 09/03/24 07:41 Total Protein 8.4 g/dL (6.4-8.2) H 09/03/24 07:41 Albumin 4.2 g/dL (3.4-5.0) 09/03/24 07:41 Globulin 4.2 g/dL (2.5-4.5) 09/03/24 07:41 Albumin/Globulin Ratio 1.0 Ratio (1.1-2.1) L 09/03/24 07:41 HCG, Qual Negative <10 mIU/mL 09/03/24 07:41 Acetone, Semi-Quant Negative (NEGATIVE) 09/03/24 07:41 <Shant Berg - Last Filed: 09/03/24 10:12> Labs Reviewed Laboratory Results Reviewed?: Yes Laboratory: WBC 10.9 X10^3/uL (3.6-10.0) H 09/03/24 07:41 RBC 4.70 X10^6/uL (3.5-5.4) 09/03/24 07:41 Hgb 14.3 g/dL (12.0-16.0) 09/03/24 07:41 Hct 43.5 % (36.0-47.0) 09/03/24 07:41 MCV 92.4 fL (80.0-100.0) 09/03/24 07:41 MCH 30.3 pg (27.0-34.0) 09/03/24 07:41 MCHC 32.8 g/dL (33.0-35.0) L 09/03/24 07:41 RDW 13.3 % (11.6-16.5) 09/03/24 07:41 Plt Count 308 X10^3/uL (150.0-450.0) 09/03/24 07:41 MPV 8.5 fL (7.4-11.0) 09/03/24 07:41 Neut % (Auto) 59.6 % (42.0-75.0) 09/03/24 07:41 Lymph % (Auto) 30.7 % (21.0-51.0) 09/03/24 07:41 [place] % (Auto) 6.2 % (0.0-13.0) 09/03/24 07:41 Eos % (Auto) 2.9 % (0.9-2.9) 09/03/24 07:41 Baso % (Auto) 0.6 % (0.2-1.0) 09/03/24 07:41 Neut # (Auto) 6.5 x10^3/uL (2.2-4.8) H 09/03/24 07:41 Lymph # (Auto) 3.3 X10^3/uL (1.3-2.9) H 09/03/24 07:41 [place] # (Auto) 0.7 x10^3/uL (0.3-0.8) 09/03/24 07:41 Eos # (Auto) 0.3 x10^3/uL (0.0-0.2) H 09/03/24 07:41 Baso # (Auto) 0.1 X10^3/uL (0.0-0.1) 09/03/24 07:41 Absolute Nucleated RBC 0.1 /100WBC 09/03/24 07:41 Sodium 127 mmol/L (136-145) L 09/03/24 07:41 Corrected Sodium 143 mmol/L (136-145) 09/03/24 07:41 Potassium 3.8 mmol/L (3.5-5.1) 09/03/24 07:41 Chloride 87 mmol/L (98-107) L 09/03/24 07:41 Carbon Dioxide 20.3 mmol/L (21-32) L 09/03/24 07:41 BUN 16 mg/dL (7-18) 09/03/24 07:41 Creatinine 1.53 mg/dL (0.55-1.02) H 09/03/24 07:41 Est GFR (MDRD) Af Amer 54 (>60) L 09/03/24 07:41 Est GFR (MDRD) Non-Af 45 (>60) L 09/03/24 07:41 Glucose 576 mg/dL (65-99) H* 09/03/24 09:14 POC Glucose (mg/dL) > 600 mg/dL (65-99) 09/03/24 09:07 Calcium 9.0 mg/dL (8.5-10.1) 09/03/24 07:41 Corrected Calcium TNP 09/03/24 07:41 Total Bilirubin 0.40 mg/dL (0.2-1.0) 09/03/24 07:41 AST 19 Units/L (15-37) 09/03/24 07:41 ALT 31 Units/L (12-78) 09/03/24 07:41 Alkaline Phosphatase 153 Units/L (46-116) H 09/03/24 07:41 Total Protein 8.4 g/dL (6.4-8.2) H 09/03/24 07:41 Albumin 4.2 g/dL (3.4-5.0) 09/03/24 07:41 Globulin 4.2 g/dL (2.5-4.5) 09/03/24 07:41 Albumin/Globulin Ratio 1.0 Ratio (1.1-2.1) L 09/03/24 07:41 HCG, Qual Negative <10 mIU/mL 09/03/24 07:41 Acetone, Semi-Quant Negative (NEGATIVE) 09/03/24 07:41 Opioid <Vincent Ford - Last Filed: 09/03/24 08:14> Opioid Risk Tool Age (Jeremy box if 16-45): Yes History of Preadolescent Sexual Abuse: No Total: 1 Total Score Risk Category: Low Risk Copyright: Jhonathan DIXON predicting aberrant behaviors <Shant Berg - Last Filed: 09/03/24 10:12> Opioid Risk Tool Total: 1 Total Score Risk Category: Low Risk Discharge Plan Diagnosis Discharge Problem: Diabetic hyperosmolar non-ketotic state, Seizure disorder Discharge Plan Patient Disposition: ADMITTED INPATIENT Condition: Stable Orders to Discharge Patient Discharge Orders: Transfer (Routine); Ordered 09/03/24 Ordered By: Shant Berg
[2024-09-03] MEDS: NS 1,000 ML IV 1,000 ML IV ONE ×2 (08:03→09:15)
[2024-09-03] MEDS: NovoLIN R (or HumuLIN R) IV ONE ×2 (08:03→09:48)
[2024-09-03 08:12] LABS: SERUM PREGNANCY TEST, QUAL NEGATIVE <10 mIU/mL
[2024-09-03 08:13] LABS: MEAN PLATELET VOLUME 8.5 fL (7.4-11.0); RED CELL DISTRIBUTION WIDTH 13.3 % (11.6-16.5); SERUM ACETONE NEGATIVE (NEGATIVE)
[2024-09-03 08:15] LABS: CREATININE 1.53 mg/dL (0.55-1.02); eGFR NON BLACK RACES 45 (>60)
[2024-09-03] MEDS: NS IV ONE (08:28)
[2024-09-03] MEDS: KEPPRA IV ONE (08:28)
[2024-09-03 08:30] LABS: COR NA(FOR HYPERGLY) 143 mmol/L (136-145)
--- NOTE | 2024-09-03 09:21 | CT ---
EXAM: CT HEAD WITHOUT CONTRAST HISTORY: seizure; COMPARISON: 07/08. TECHNIQUE: Axial CT images were obtained through the brain without contrast. All CT scans at this facility use dose modulation, iterative reconstruction, and/or weight based dosing when appropriate to reduce radiation dose to as low as reasonably achievable. FINDINGS: No acute intracranial hemorrhage or extra-axial fluid collection. No mass effect or midline shift. Normal ventricles and CSF space configuration. No hydrocephalus. Hammond-white differentiation is preserved. Intact calvarium. Visualized paranasal sinuses and mastoid air cells are well aerated. IMPRESSION: No acute intracranial findings. THIS IS AN ELECTRONICALLY VERIFIED FINAL REPORT 09/03/2024 9:17 AM - Electronically signed by Tani Moody MD
[2024-09-03 10:10] LABS: ABG ALLEN TEST POS; ABG BASE EXCESS -5.4 mmol/L (-2.0-2.0); ABG HCO3 20.6 mmol/L (22-26); ABG OXYGEN SATURATION 96.0 % (90-100); ABG PCO2 41.0 mmHg (35.0-45.0); ABG PH 7.310 (7.35-7.45); ABG PO2 89.0 mmHg (80.0-100.0)
[2024-09-03] MEDS: NS 1,000 ML IV 1,000 ML IV SCH (10:16)
[2024-09-03] MEDS: MYXREDLIN 100 UNIT/100 ML BAG 100 UNIT/100 ML PLAST..BAG IV PRN (10:17)
[2024-09-03] MEDS: NS 1,000 ML IV 1,000 ML ONE (10:26)
[2024-09-03] MEDS: NS 100 ML IV 100 ML ONE (10:27)
[2024-09-03] MEDS: NovoLIN R (or HumuLIN R) ONE (10:31)
[2024-09-03] MEDS ORDERED: TYLENOL 325 MG TAB PO PRN (19:08)
[2024-09-03] MEDS ORDERED: NORCO 5/325 MG TAB PO PRN (19:08)
[2024-09-03] MEDS: ULTRAM PO PRN (19:29)
[2024-09-03] MEDS: KEPPRA TAB 500 MG PO SCH (20:13)
[2024-09-03] MEDS: INDERAL TAB 10 MG PO PRN (20:20)
[2024-09-03] MEDS: PRAZOSIN 1 MG PO SCH (20:24)
[2024-09-03] MEDS: ATARAX TAB 25 MG PO PRN (20:56)
[2024-09-04 07:01] LABS: MEAN PLATELET VOLUME 7.8 fL (7.4-11.0); RED CELL DISTRIBUTION WIDTH 13.0 % (11.6-16.5)
[2024-09-04 07:19] LABS: COR CA(FOR HYPOALB) 9.1 mg/dL (8.5-10.1); COR NA(FOR HYPERGLY) 143 mmol/L (136-145); CREATININE 0.57 mg/dL (0.55-1.02); eGFR NON BLACK RACES > 60 (>60)
--- NOTE | 2024-09-04 10:27 | DR.H&P ---
H&P History & Physical for Day of: H&P Date: 09/03/24 Chief Complaint Chief Complaint: seizure History of Present Illness History of Present Illness: Patient is a 24-year-old female presenting after having seizure episode at work at [employer]. 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 She was taken to the ER. She was postictal in the ER however responded well to treatments. She was given IV Keppra. It was also noted that her blood sugars were significantly elevated. She is a type I diabetic. She has known seizure disorder. Labs/imaging: WBC 10.9, hemoglobin 14.3, platelets 308, ABG pH 7.31, AGA035, PO289, HCO3 20, O2 sat 96% on room air, sodium 127, potassium 3.8, creatinine 1.53, glucose 411688, brain CT negative for any intracranial findings. Patient was admitted for seizure, hyperglycemia, hyponatremia. She was restarted on her Keppra. Will continue to closely monitor with neurochecks. Will also start her on DKA protocol. She is significantly hyperglycemic and I am familiar with this patient being a brittle diabetic. Will use the protocol to safely and gradually reduce blood sugars and normalize electrolytes. Otherwise we will continue with current treatment plan. Continue closely monitor and follow-up labs/imaging. Time spent on clinical assessment, reviewing labs and imaging, decision making, and documentation greater than 45 minutes. Past Medical History Past Medical History: Diabetes, GERD, Hypertension and Seizures Past Surgical History Surgical History: Cholecystectomy Family History Family Medical History: Diabetes Mellitus and Coronary Artery Disease Social History Does patient currently use any type of tobacco product: No Have you used tobacco products in the last 12 months: No Type of Tobacco Use: Vape Does any household member use tobacco: No Alcohol Use: Occasionally Drug Use: Marijuana Medications Home Medications: Home Medications Medication Instructions Recorded Confirmed Type fluoxetine 40 mg capsule 40 mg PO DAILY 09/03/2408/17 History insulin glargine 100 unit/mL 50 unit subcut DAILY 08/1709/03/24 History subcutaneous solution (Lantus U-100 Insulin) insulin lispro 100 unit/mL 1 sliding scale dose subcut TID 09/03/24 09/03/24 History subcutaneous solution olanzapine 5 mg tablet 5 mg PO HS 09/03/24 09/03/24 History prazosin 1 mg capsule 1 mg PO HS 09/03/24 09/03/24 History propranolol 10 mg tablet 10 mg PO BID PRN Anxiety 09/03/24 History Allergies Allergies Allergy/AdvReac Type Severity Reaction Status Date / Time almond Allergy Severe RASH Verified 09/03/24 07:48 apple Allergy Severe RASH Verified 09/03/24 07:48 banana Allergy Severe RASH Verified 09/03/24 07:48 dunaway pepper Allergy Severe RASH Verified 09/03/24 07:48 carrot Allergy Severe RASH Verified 09/03/24 07:48 lloyd Allergy Severe RASH Verified 09/03/24 07:48 lloyd flavor Allergy Severe RASH Verified 09/03/24 07:48 cockroach Allergy Severe RASH Verified 09/03/24 07:48 coffee (Coffea arabica) Allergy Severe RASH Verified 09/03/24 07:48 Fish Containing Products Allergy Severe RASH Verified 09/03/24 07:48 fish derived Allergy Severe RASH Verified 09/03/24 07:48 green snow Allergy Severe RASH Verified 09/03/24 07:48 hazelnut Allergy Severe RASH Verified 09/03/24 07:48 lobster Allergy Severe RASH Verified 09/03/24 07:48 scallops Allergy Severe RASH Verified 09/03/24 07:48 spinach Allergy Severe RASH Verified 09/03/24 07:48 watermelon Allergy Severe RASH Verified 09/03/24 07:48 wild lloyd Allergy Severe RASH Verified 09/03/24 07:48 Labs 09/04/24 06:33 09/04/24 06:33 Labs: Laboratory WBC 8.8 X10^3/uL (3.6-10.0) 09/04/24 06:33 RBC 4.11 X10^6/uL (3.5-5.4) 09/04/24 06:33 Hgb 12.4 g/dL (12.0-16.0) 09/04/24 06:33 Hct 36.4 % (36.0-47.0) 09/04/24 06:33 MCV 88.5 fL (80.0-100.0) 09/04/24 06:33 MCH 30.2 pg (27.0-34.0) 09/04/24 06:33 MCHC 34.1 g/dL (33.0-35.0) 09/04/24 06:33 RDW 13.0 % (11.6-16.5) 09/04/24 06:33 Plt Count 239 X10^3/uL (150.0-450.0) 09/04/24 06:33 MPV 7.8 fL (7.4-11.0) 09/04/24 06:33 Neut % (Auto) 62.9 % (42.0-75.0) 09/04/24 06:33 Lymph % (Auto) 29.1 % (21.0-51.0) 09/04/24 06:33 [place] % (Auto) 4.4 % (0.0-13.0) 09/04/24 06:33 Eos % (Auto) 3.0 % (0.9-2.9) H 09/04/24 06:33 Baso % (Auto) 0.6 % (0.2-1.0) 09/04/24 06:33 Neut # (Auto) 5.5 x10^3/uL (2.2-4.8) H 09/04/24 06:33 Lymph # (Auto) 2.6 X10^3/uL (1.3-2.9) 09/04/24 06:33 [place] # (Auto) 0.4 x10^3/uL (0.3-0.8) 09/04/24 06:33 Eos # (Auto) 0.3 x10^3/uL (0.0-0.2) H 09/04/24 06:33 Baso # (Auto) 0.1 X10^3/uL (0.0-0.1) 09/04/24 06:33 Absolute Nucleated RBC 0.0 /100WBC 09/04/24 06:33 Sample Site Rrad 09/03/24 10:05 ABG pH 7.310 (7.35-7.45) L 09/03/24 10:05 ABG pCO2 41.0 mmHg (35.0-45.0) 09/03/24 10:05 ABG pO2 89.0 mmHg (80.0-100.0) 09/03/24 10:05 ABG HCO3 20.6 mmol/L (22-26) L 09/03/24 10:05 ABG O2 Saturation 96.0 % (90-100) 09/03/24 10:05 ABG Base Excess -5.4 mmol/L (-2.0-2.0) L 09/03/24 10:05 Stan Test Pos 09/03/24 10:05 A-a Gradient 9.0 mmHg 09/03/24 10:05 FiO2 21.0 09/03/24 10:05 Blood Gas Comments Ricci well ms 09/03/24 10:05 Sodium 142 mmol/L (136-145) 09/04/24 06:33 Corrected Sodium 143 mmol/L (136-145) 09/04/24 06:33 Potassium 3.7 mmol/L (3.5-5.1) 09/04/24 06:33 Chloride 108 mmol/L (98-107) H 09/04/24 06:33 Carbon Dioxide 24.6 mmol/L (21-32) 09/04/24 06:33 BUN 9 mg/dL (7-18) 09/04/24 06:33 Creatinine 0.57 mg/dL (0.55-1.02) 09/04/24 06:33 Est GFR (MDRD) Af Amer > 60 (>60) 09/04/24 06:33 Est GFR (MDRD) Non-Af > 60 (>60) 09/04/24 06:33 Glucose 136 mg/dL (65-99) H 09/04/24 06:33 POC Glucose (mg/dL) 160 mg/dL (65-99) H 09/04/24 09:23 Calcium 8.1 mg/dL (8.5-10.1) L 09/04/24 06:33 Corrected Calcium 9.1 mg/dL (8.5-10.1) 09/04/24 06:33 Total Bilirubin 0.10 mg/dL (0.2-1.0) L 09/04/24 06:33 AST 16 Units/L (15-37) 09/04/24 06:33 ALT 23 Units/L (12-78) 09/04/24 06:33 Alkaline Phosphatase 98 Units/L (46-116) 09/04/24 06:33 B-Natriuretic Peptide 25.5 pg/mL (0-79) 09/03/24 18:30 Total Protein 5.8 g/dL (6.4-8.2) L 09/04/24 06:33 Albumin 2.7 g/dL (3.4-5.0) L 09/04/24 06:33 Globulin 3.1 g/dL (2.5-4.5) 09/04/24 06:33 Albumin/Globulin Ratio 0.9 Ratio (1.1-2.1) L 09/04/24 06:33 HCG, Qual Negative <10 mIU/mL 09/03/24 07:41 Acetone, Semi-Quant Negative (NEGATIVE) 09/03/24 07:41 Review of Systems Constitutional: Weakness Eyes: No Symptoms Reported ENT: No Symptoms Reported Respiratory: No Symptoms Reported Cardiovascular: No Symptoms Reported Gastrointestinal: No Symptoms Reported Genitourinary: No Symptoms Reported Musculoskeletal: No Symptoms Reported Skin: No Symptoms Reported Neurological: No Symptoms Reported Physical Exam Vital Signs: Vital Signs Temperature 97.5 F Pulse Rate 81 Pulse Rate 76 Pulse Rate 70 Pulse Rate 78 Respiratory Rate 16 Respiratory Rate 14 Respiratory Rate 13 Respiratory Rate 13 Blood Pressure 119/86 Blood Pressure 112/74 Blood Pressure 113/65 Blood Pressure 112/76 O2 Sat by Pulse Oximetry 100 O2 Sat by Pulse Oximetry 100 O2 Sat by Pulse Oximetry 99 O2 Sat by Pulse Oximetry 99 Oriented: Normal Eyes: Normal Ear: Normal Nose: Normal Throat: Normal Respiratory: Clear Throughout Cardiovascular: Normal : Normal Auscultation: Bowel Sounds: Normal Palpation: Normal Tenderness: Normal Skin: Normal Musculoskeletal: Normal Psychiatric: Normal Mood Description: Calm and Appropriate Affect: Normal Speech Pattern: Clear and Appropriate Assessment/Plan (1) Seizure disorder: Status: Acute Plan: restart [facility] neuro checks (2) Diabetic hyperosmolar non-ketotic state: Status: Acute Plan: DKA protocol (3) Hyponatremia: Status: Acute Plan: replete electrolytes Review H&P Reviewed: Yes Patient was examined?: Yes
[2024-09-04] MEDS ORDERED: NovoLIN R (or HumuLIN R) ONE (11:46)
[2024-09-04] MEDS: NovoLIN R (or HumuLIN R) SUBCUT PRN (11:58)
[2024-09-04 12:27] VITALS: BP 129/84; PULSE 83; RESP 18; TEMP 98.2; O2SAT 98
[2024-09-04] MEDS ORDERED: SNACK - Diabetic Appropriate PO SCH (20:00)
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
== END 2024-09-04 12:25 | disposition home or self-care (01) ==
LOC: ER 07:32 → INTOOBSV 10:00 → ICU 10:00
PROVIDERS: ADMIT Family Medicine; ATTEND Family Medicine
DX: K21.9 Gastro-esophageal reflux disease without esophagitis; E10.65 Type 1 diabetes mellitus with hyperglycemia; Z79.4 Long term (current) use of insulin; E10.69 Type 1 diabetes mellitus with other specified complication; Z72.0 Tobacco use; R94.4 Abnormal results of kidney function studies; F12.90 Cannabis use, unspecified, uncomplicated; I10 Essential (primary) hypertension; G40.909 Epilepsy, unspecified, not intractable, without status epilepticus; E87.0 Hyperosmolality and hypernatremia